=== PATIENT | female | born 1945 | race Caucasian/White ===

== ENCOUNTER 2018-09-10 05:16 | Day surgery (SDC) | payer MEDICARE ==
[2018-09-07 10:49] VITALS: BP 125/74
[2018-09-07 11:12] LABS: BASOPHILS # (AUTO) 0.01 x10^3/uL (0-0.1); BASOPHILS % (AUTO) 0 % (0-1); EOSINOPHILS % (AUTO) 2 % (1-7); LYMPHOCYTES # (AUTO) 0.98 x10^3/uL (1-3.4); LYMPHOCYTES % (AUTO) 16 % (22-44); MD NO; MEAN CORPUSCULAR HEMOGLOBIN 30.2 pg (27.0-34.8); MEAN CORPUSCULAR HGB CONC 33.9 g/dL (32.4-35.8); MEAN CORPUSCULAR VOLUME 89.1 fL (80-100); MEAN PLATELET VOLUME 7.6 fL (7.4-10.4); MONOCYTES # (AUTO) 0.58 x10^3/uL (0.2-0.8); MONOCYTES % (AUTO) 10 % (2-9); NEUTROPHILS # (AUTO) 4.35 x10^3/uL (1.8-6.8); NEUTROPHILS % (AUTO) 72 % (42-75); PLATELET COUNT 213 x10^3/uL (130-400); RED BLOOD COUNT 4.74 x10^6/uL (3.82-5.3); RED CELL DISTRIBUTION WIDTH 14.3 % (9.6-15.2)
[2018-09-07 11:24] LABS: ALANINE AMINOTRANSFERASE 21 U/L (12-78); ANION GAP 7 mmol/L (5-15); CALCIUM 9.4 mg/dL (8.5-10.1); CHLORIDE 107 mmol/L (98-107); CREATININE 1.01 mg/dL (0.55-1.02)
[2018-09-07 11:26] LABS: ALKALINE PHOSPHATASE 78 U/L (45-117); BILIRUBIN,TOTAL 0.4 mg/dL (0.2-1.0); TOTAL PROTEIN 7.7 g/dL (6.4-8.2)
[~2018-09-10] VITALS: Ht 162.6 cm; Wt 58.9 kg
[~2018-09-10 05:16] MED LIST: None per pt.
[2018-09-10] MEDS ORDERED: LACTATED RINGERS 1,000 ML IV SCH (06:08)
[2018-09-10 06:09] VITALS: BP 125/74
[2018-09-10] MEDS ORDERED: MIDAZOLAM 1 MG/ML, 2ML ONE (06:49)
[2018-09-10] MEDS ORDERED: FENTANYL PF 250 MCG/5ML ONE (06:50)
[2018-09-10] MEDS ORDERED: PROPOFOL 10 MG/ML, 20ML ONE (06:50)
[2018-09-10] MEDS ORDERED: BUPIVACAINE/PF 0.25% ONE (06:51)
[2018-09-10] MEDS ORDERED: CEFAZOLIN 1,000 MG ONE ×2 (06:51)
[2018-09-10] MEDS ORDERED: SODIUM CHLORIDE 0.9% PF 10ML ONE (06:51)
[2018-09-10] MEDS ORDERED: ONDANSETRON 2MG/ML, 2ML ONE (06:52)
[2018-09-10] MEDS ORDERED: DEXAMETHASONE 4 MG/ML, 1ML ONE ×2 (06:52)
[2018-09-10] MEDS ORDERED: ONDANSETRON 2MG/ML, 2ML IV PRN (07:30)
[2018-09-10] MEDS ORDERED: MEPERIDINE/PF 25MG/0.5ML IVPush PRN (07:30)
[2018-09-10] MEDS ORDERED: LABETALOL 5MG/ML, 20ML IV PRN (07:30)
[2018-09-10] MEDS ORDERED: ONDANSETRON ODT 8 MG PO PRN (07:30)
[2018-09-10] MEDS ORDERED: PROMETHAZINE 12.5 MG SUPP PR PRN (07:30)
[2018-09-10] MEDS ORDERED: PROMETHAZINE 25 MG/ML, 1ML IM PRN ×2 (07:30)
[2018-09-10] MEDS ORDERED: PROMETHAZINE 25 MG/ML, 1ML IV PRN (07:30)
[2018-09-10] MEDS ORDERED: hydrALAzine 20 MG/ML, 1ML IV PRN (07:30)
[2018-09-10] MEDS ORDERED: MORPHINE SULFATE 4 MG/ML, 1ML IVPush PRN (07:30)
[2018-09-10] MEDS ORDERED: ACETAMINOPHEN 325 MG TABLET PO PRN (07:30)
[2018-09-10] MEDS ORDERED: PROMETHAZINE 25 MG SUPP PR PRN (07:30)
[2018-09-10] MEDS ORDERED: FENTANYL PF 100 MCG/2ML IV PRN (07:30)
[2018-09-10] MEDS ORDERED: OXYcodone 5 MG/5 ML ORAL.SOL UDC PO PRN (07:30)
[2018-09-10] MEDS ORDERED: HYDROmorphone 2 MG/ML, 1ML IVPush PRN (07:30)
[2018-09-10 07:42] LABS: INTERNATIONAL NORMALIZED RATIO 0.98 (0.93-1.1); PROTHROMBIN TIME 10.3 Seconds (9.6-11.5)
[2018-09-10] MEDS ORDERED: PHENYLEPHRINE 10 MG/ML ONE (07:44)
== END 2018-09-10 12:25 | disposition home or self-care (01) ==
LOC: OUT 05:16
PROVIDERS: ATTEND Specialist
DX: K62.89 Other specified diseases of anus and rectum (principal); Z72.89 Other problems related to lifestyle; Z79.01 Long term (current) use of anticoagulants
CPT/HCPCS: 11104; 11105; 36415; 80053; 85025; 85610; 85730; 88305; 93005; J0690; J1100; J2250; J2370; J2405; J2704; J3010; J3490; J7120